=== PATIENT | female | born 1995 | race African-American/Black ===

== ENCOUNTER 2019-10-11 16:06 | Emergency (ER) | payer OTHER ==
[2019-10-11] MEDS ORDERED: KETOROLAC 15 MG/ML 1 ML VIAL IVP STA (16:24)
[2019-10-11] MEDS ORDERED: SODIUM CHLORIDE 0.9% 1,000 ML IV STA (16:24)
[2019-10-11] MEDS ORDERED: ONDANSETRON 4 MG/2 ML VIAL IVP STA (16:24)
[2019-10-11] MEDS ORDERED: ACETAMINOPHEN TAB 500 MG TAB PO STA (16:25)
--- NOTE | 2019-10-11 16:29 | ED ---
Abdominal Pain HPI - General Source: patient Mode of arrival: ambulatory Limitations: no limitations <Radha Matute - Last Filed: 10/11/19 18:53> <Ravi Melchor - Last Filed: 10/11/19 22:07> - General Chief Complaint: Abdominal Pain Stated Complaint: fever, abd pain Time Seen by Provider: 10/11/19 16:13 - History of Present Illness Initial Comments: patient is a 24-year-old female presenting to emergency Department with complaints of abdominal pain, fever, diarrhea that started yesterday. Patient states her belly pain yesterday started as just a general belly ache, in the lower abdomen and she also felt nauseous yesterday. Patient states this morning the pain has increased since more on her left side and she's been also having diarrhea today. She also had a fever at home and having chills. She continues to be nauseous, no vomiting. She does have a history cholecystectomy, no other abdominal surgeries. She states she is not at this time, secondary to control pill. She denies any chest pain or shortness of breath. She denies any vaginal complaints, dysuria, frequency. Patient didn't know that she was treated for a UTI approximately one month ago but felt like her symptoms have cleared up. No further complaints at this time. Patient's temperature is 99.2, pulse is 118, respiratory rate 20, BP is 114/75, 99% on room air. (Radha Matute) - Related Data Home Medications Medication Instructions Recorded Confirmed l-Norgest/E.estradiol-E.estrad 1 tab PO DAILY 10/11/19 10/11/19 [Loseasonique Tablet] Previous Rx's Medication Instructions Recorded Ciprofloxacin HCl [Cipro] 500 mg PO Q12HR #14 tablet 10/11/19 Allergies Allergy/AdvReac Type Severity Reaction Status Date / Time metoclopramide [From Reglan] AdvReac anxiety Verified 10/11/19 19:35 Review of Systems ROS Other: All systems not noted in ROS Statement are negative. <Radha Matute - Last Filed: 10/11/19 18:53> ROS Other: All systems not noted in ROS Statement are negative. <Ravi Melchor - Last Filed: 10/11/19 22:07> ROS Statement: Those systems with pertinent positive or pertinent negative responses have been documented in the HPI. Past Medical History Past Medical History: No Reported History History of Any Multi-Drug Resistant Organisms: None Reported Past Surgical History: Cholecystectomy Past Psychological History: No Psychological Hx Reported Smoking Status: Never smoker Past Alcohol Use History: None Reported Past Drug Use History: None Reported <Radha Matute - Last Filed: 10/11/19 18:53> General Exam Limitations: no limitations <Radha Matute - Last Filed: 10/11/19 18:53> - General Exam Comments Initial Comments: GENERAL: Patient is well-developed and well-nourished. Patient is nontoxic and in no acute distress. HEAD: Atraumatic, normocephalic. EYES: Pupils equal round and reactive to light, extraocular movements intact, sclera anicteric, conjunctiva are normal. Eyelids were unremarkable. ENT: TMs normal, nares patent, oropharynx clear without exudates. Moist mucous membranes. NECK: Normal range of motion, supple without lymphadenopathy or JVD. LUNGS: Unlabored respirations. Breath sounds clear to auscultation bilaterally and equal. No wheezes rales or rhonchi. HEART: tachycardia rate and rhythm without murmurs, rubs or gallops. ABDOMEN: tender to palpation of the entire lower abdomen, increases on the left lower quadrant. Soft, normoactive bowel sounds. No guarding, no rebound. No masses appreciated. : Deferred MUSCULOSKELETAL: Normal extremities with adequate strength and normal range of motion, no pitting or edema. No clubbing or cyanosis. NEUROLOGICAL: Patient is alert and oriented x 3. Motor and sensory are also intact. Cranial nerves II through XII grossly intact. Symmetrical smile. Normal speech, normal gait. PSYCH: Normal mood, normal affect. SKIN: Warm, Dry, normal turgor, no rashes or lesions noted. (Radha Matute) Course <Radha Matute - Last Filed: 10/11/19 18:53> <Ravi Melchor - Last Filed: 10/11/19 22:07> Vital Signs 10/11/19 16:08 Temperature 99.2 F Pulse Rate 118 H Respiratory 20 Rate Blood Pressure 114/75 O2 Sat by Pulse 99 Oximetry - Reevaluation(s) Reevaluation #1: 10/11/19 18:53 patient is a very hard stick, there has been 3 attempts in the ER, PERINATAL NURSE was called. We are waiting blood and urine. Patient was signed out to Dr. Melchor. (Radha Matute) 10/11/19 20:08 ED RN approached me stating that they have been unable to obtain blood successfully from the patient, stating that the patient is a hard stick. Patient reports to me that she has had lower abdominal pain and diarrhea since yesterday. Patient denies nausea or vomiting. Patient denies having any dysuria or urinary symptoms. Patient states that she is currently on her period. On examination, the patient has no abdominal tenderness or guarding at this time. Patient's urine test is negative. Patient's UA findings are suggestive of possible UTI. I have discussed the option to continue to attempt to draw blood from the patient, but she declines, stating that she does not want to be stuck again. Patient agrees with plan to obtain noncontrast CT abdomen and pelvis at this time. 10/11/19 22:01 Patient's abdomen remains soft and nontender on examination at this time. Patient is afebrile in the ED. Patient has not any diarrhea/loose bowel movements while in the ED. Patient is aware of her test results, and she feels comfortable going home at this time. Patient's CT is only significant for possible edema left renal hilum. I suspect that the patient's pain may be secondary to UTI and/or viral enteritis. Patient was instructed to drink plenty of fluids to stay hydrated. Patient was provided with a prescription for a course of ciprofloxacin. Patient was counseled about abdominal pain, UTI and diarrhea. Patient was instructed to follow up closely with her primary care provider. Patient feels comfortable with this plan. (Ravi Melchor) Medical Decision Making <Radha Matute - Last Filed: 10/11/19 18:53> - Radiology Data Radiology results: report reviewed (Noncontrast CT abdomen/pelvis report: Appendix appears within normal limits, there is suggestion of edema at the left renal hilum, no calculus seen, no hydronephrosis, this could relate to some nephritis or pyelonephritis) <Ravi Melchor - Last Filed: 10/11/19 22:07> - Medical Decision Making patient is a 24-year-old female here for lower left quadrant abdominal pain, fever, diarrhea 2 days. She is a history of cholecystectomy, states she is not secondary to control pill. Patient was tachycardia on arrival, 99.2 temperature but feels warmer. She is tender of the entire lower abdomen, increases on the left lower quadrant. (Radha Matute) - Lab Data Lab Results 10/11/19 10/11/19 Range/Units 19:04 19:04 Urine Color Yellow Urine Appearance Turbid H (Clear) Urine pH 6.0 (5.0-8.0) Ur Specific [place] 1.018 (1.001-1.035) Urine Protein 2+ H (Negative) Urine Glucose (UA) Negative (Negative) Urine Ketones 1+ H (Negative) Urine Blood Large H (Negative) Urine Nitrite Positive H (Negative) Urine Bilirubin Negative (Negative) Urine Urobilinogen <2.0 (<2.0) mg/dL Ur Leukocyte Esterase Large H (Negative) Urine RBC >182 H (0-5) /hpf Urine WBC >182 H (0-5) /hpf Urine WBC Clumps Many H (None) /hpf Ur Squamous Epith Cells 2 (0-4) /hpf Urine Bacteria Occasional H (None) /hpf Urine Mucus Moderate H (None) /hpf Urine HCG, Qual Not Detected (Not Detectd) Disposition <Radha Matute - Last Filed: 10/11/19 18:53> Is patient prescribed a controlled substance at d/c from ED?: No Time of Disposition: 21:59 <Ravi Melchor - Last Filed: 10/11/19 22:07> Clinical Impression: UTI (urinary tract infection), Abdominal pain, Diarrhea Disposition: HOME SELF-CARE Condition: Stable Instructions (If sedation given, give patient instructions): Urinary Tract Infection in Men (ED), Acute Diarrhea (ED), Abdominal Pain (ED) Additional Instructions: Return to the ER immediately should you develop new or worsening pain, persistent or bloody diarrhea, vomiting, a fever, feeling dizzy or faint, shortness of breath, or new or worsening symptoms. Follow up closely with your primary care provider. Prescriptions: Ciprofloxacin HCl [Cipro] 500 mg PO Q12HR #14 tablet Referrals: Jailene Tirado MD [Primary Care Provider] - 1-2 days
[2019-10-11 19:44] LABS: Appearance,Urine Turbid (Clear); Bacteria,Urine Occasional /hpf; Bilirubin,Urine Negative (Negative); Blood,Urine Large (Negative); Color,Urine Yellow; Glucose,Urine (UA) Negative (Negative); Ketones,Urine 1+ (Negative); Leukocyte Esterase,Urine Large (Negative); Mucus,Urine Moderate /hpf; Nitrite,Urine Positive (Negative); Protein,Urine 2+ (Negative); RBC,Urine >182 /hpf (0-5); Specific Gravity,Urine 1.018 (1.001-1.035); Squamous Epithelial Cell,Urine 2 /hpf (0-4); Urobilinogen,Urine <2.0 mg/dL (<2.0); WBC,Urine >182 /hpf (0-5)
--- NOTE | 2019-10-11 20:45 | CT ---
EXAMINATION TYPE: CT abdomen pelvis wo con DATE OF EXAM: 10/11/2019 COMPARISON: None HISTORY: Lower abdominal pain, fever, change in bowel habits. CT DLP: 431.2 mGycm Automated exposure control for dose reduction was used. The lung bases are clear. There is no pleural effusion. Heart size is normal. Liver spleen stomach pa ncreas appear normal. There are clips from cholecystectomy. The bile ducts are not dilated. There is no adrenal mass. Kidneys have normal size and contour. There is no hydronephrosis. Ureters a re not dilated. There is no retroperitoneal adenopathy. There is suggestion of some mild fat strandin g at the left renal hilum. Bladder distends smoothly. There is no inguinal hernia. There is no free f luid in the pelvis. Uterus is anteverted. There is no evidence of a pelvic mass. Lumbar vertebra have normal spacing and alignment. Posterior elements are intact. Bony pelvis is intact. Appendix is infe rior and lateral and appears normal. There is no mesenteric edema. There is no ascites or free air. There is no sign of a bowel obstructio n. Lumbar vertebra have normal spacing and alignment. Posterior elements are intact. The bony pelvis is intact. IMPRESSION: Appendix appears within normal limits. There is suggestion of edema at the left renal hilum. No calcu alcon seen. No hydronephrosis. This could relate to some nephritis or pyelonephritis.
[2019-10-11] MEDS ORDERED: CIPROFLOXACIN HCL 500 MG TAB PO STA (21:56)
[2019-10-11 22:14] VITALS: BP 118/68; PULSE 103; RESP 19; TEMP 99.7
== END 2019-10-11 22:13 | disposition home or self-care (01) ==
LOC: EC 16:06
DX: N39.0 Urinary tract infection, site not specified (principal); R19.7 Diarrhea, unspecified; Z88.8 Allergy status to other drugs, medicaments and biological substances; Z90.49 Acquired absence of other specified parts of digestive tract
CPT/HCPCS: 74176; 81001; 81025; 87086; 99284

== ENCOUNTER 2020-12-07 03:42 | Emergency (ER) | payer OTHER ==
[2020-12-07] MEDS ORDERED: SODIUM CHLORIDE 0.9% 1,000 ML IV STA (04:00)
[2020-12-07] MEDS ORDERED: ACETAMINOPHEN TAB 500 MG TAB PO STA (04:00)
[2020-12-07] MEDS ORDERED: KETOROLAC 15 MG/ML 1 ML VIAL IVP STA (04:00)
--- NOTE | 2020-12-07 04:07 | ED ---
Headache HPI - General Chief Complaint: Headache Stated Complaint: vomiting,poss fever Time Seen by Provider: 12/07/20 04:00 Source: RN notes reviewed, old records reviewed Mode of arrival: ambulatory Limitations: no limitations - History of Present Illness Initial Comments: This is a 25-year-old female to the ER today. She presents today for evaluation of fever not feeling well cough and is generalized body aches and pains. Patient is immunizations up-to-date. No travel history no sick contacts no significant medical history takes no medications. MD Complaint: headache, "migraine" -: hour(s) Onset Description: sudden, gradual Location: right, left Severity: moderate Severity scale (1-10): 4 Quality: aching Consistency: intermittent Improves With: nothing Worsens With: none Associated Symptoms: fever Other Symptoms: cough Treatments Prior to Arrival: none - Related Data Home Medications Medication Instructions Recorded Confirmed l-Norgest/E.estradiol-E.estrad 1 tab PO DAILY 10/11/19 10/11/19 [Loseasonique Tablet] Previous Rx's Medication Instructions Recorded Ciprofloxacin HCl [Cipro] 500 mg PO Q12HR #14 tablet 10/11/19 Allergies Allergy/AdvReac Type Severity Reaction Status Date / Time metoclopramide [From Reglan] AdvReac anxiety Verified 12/07/20 03:51 Review of Systems ROS Statement: Those systems with pertinent positive or pertinent negative responses have been documented in the HPI. ROS Other: All systems not noted in ROS Statement are negative. Past Medical History Past Medical History: No Reported History History of Any Multi-Drug Resistant Organisms: None Reported Past Surgical History: Cholecystectomy Past Psychological History: No Psychological Hx Reported Smoking Status: Never smoker Past Alcohol Use History: None Reported Past Drug Use History: None Reported General Exam Limitations: no limitations General appearance: alert, in no apparent distress Head exam: Present: atraumatic, normocephalic, normal inspection Eye exam: Present: normal appearance, PERRL, EOMI. Absent: scleral icterus, conjunctival injection, periorbital swelling ENT exam: Present: normal exam, mucous membranes moist Neck exam: Present: normal inspection. Absent: tenderness, meningismus, lymphadenopathy Respiratory exam: Present: normal lung sounds bilaterally. Absent: respiratory distress, wheezes, rales, rhonchi, stridor Cardiovascular Exam: Present: regular rate, normal rhythm, normal heart sounds. Absent: systolic murmur, diastolic murmur, rubs, gallop, clicks GI/Abdominal exam: Present: soft, normal bowel sounds. Absent: distended, tenderness, guarding, rebound, rigid Extremities exam: Present: normal inspection, full ROM, normal capillary refill. Absent: tenderness, pedal edema, joint swelling, calf tenderness Back exam: Present: normal inspection Neurological exam: Present: alert, oriented X3, CN II-XII intact Psychiatric exam: Present: normal affect, normal mood Skin exam: Present: warm, dry, intact, normal color. Absent: rash Course Vital Signs 12/07/20 12/07/20 12/07/20 03:46 05:36 06:49 Temperature 101.7 F H 99.6 F 99.3 F Pulse Rate 98 92 93 Respiratory 18 16 18 Rate Blood Pressure 114/71 107/62 97/60 O2 Sat by Pulse 97 100 98 Oximetry - Reevaluation(s) Reevaluation #1: Medical record is reviewed Patient symptoms are significantly improved Patient family informed results questions answered Medical Decision Making - Medical Decision Making 25 female to the emergency department for evaluation. Patient is positive for fever filed syndrome likely. Testing is otherwise is negative here in the ER she is no distress and can be discharged home - Lab Data Result diagrams: 12/07/20 04:17 12/07/20 04:17 Lab Results 12/07/20 12/07/20 12/07/20 Range/Units 04:17 04:17 04:17 WBC 7.4 (3.8-10.6) k/uL RBC 4.72 (3.80-5.40) m/uL Hgb 13.4 (11.4-16.0) gm/dL Hct 40.5 (34.0-46.0) % MCV 85.9 (80.0-100.0) fL MCH 28.5 (25.0-35.0) pg MCHC 33.2 (31.0-37.0) g/dL RDW 13.5 (11.5-15.5) % Plt Count 293 (150-450) k/uL MPV 8.4 Neutrophils % 51 % Lymphocytes % 39 % Monocytes % 6 % Eosinophils % 2 % Basophils % 0 % Neutrophils # 3.8 (1.3-7.7) k/uL Lymphocytes # 2.9 (1.0-4.8) k/uL Monocytes # 0.4 (0-1.0) k/uL Eosinophils # 0.1 (0-0.7) k/uL Basophils # 0.0 (0-0.2) k/uL PT 10.1 (9.0-12.0) sec INR 0.9 (<1.2) APTT 22.6 (22.0-30.0) sec Sodium 136 L (137-145) mmol/L Potassium 3.9 (3.5-5.1) mmol/L Chloride 99 (98-107) mmol/L Carbon Dioxide 26 (22-30) mmol/L Anion Gap 11 mmol/L BUN 9 (7-17) mg/dL Creatinine 0.68 (0.52-1.04) mg/dL Est GFR (CKD-EPI)AfAm >90 (>60 ml/min/1.73 sqM) Est GFR (CKD-EPI)NonAf >90 (>60 ml/min/1.73 sqM) Glucose 98 (74-99) mg/dL Plasma Lactic Acid Darryl (0.7-2.0) mmol/L Calcium 9.7 (8.4-10.2) mg/dL Magnesium 2.0 (1.6-2.3) mg/dL Total Bilirubin 0.2 (0.2-1.3) mg/dL AST 17 (14-36) U/L ALT 13 (4-34) U/L Alkaline Phosphatase 88 (38-126) U/L Lactate Dehydrogenase 407 (313-618) U/L C-Reactive Protein 1.0 H (<1.0) mg/dL Total Protein 7.9 (6.3-8.2) g/dL Albumin 4.6 (3.5-5.0) g/dL Urine Color Urine Appearance (Clear) Urine pH (5.0-8.0) Ur Specific [place] (1.001-1.035) Urine Protein (Negative) Urine Glucose (UA) (Negative) Urine Ketones (Negative) Urine Blood (Negative) Urine Nitrite (Negative) Urine Bilirubin (Negative) Urine Urobilinogen (<2.0) mg/dL Ur Leukocyte Esterase (Negative) Urine WBC (0-5) /hpf Ur Squamous Epith Cells (0-4) /hpf Urine Bacteria (None) /hpf Urine HCG, Qual (Not Detectd) Coronavirus (PCR) (Not Detectd) 12/07/20 12/07/20 12/07/20 Range/Units 04:17 04:17 04:17 WBC (3.8-10.6) k/uL RBC (3.80-5.40) m/uL Hgb (11.4-16.0) gm/dL Hct (34.0-46.0) % MCV (80.0-100.0) fL MCH (25.0-35.0) pg MCHC (31.0-37.0) g/dL RDW (11.5-15.5) % Plt Count (150-450) k/uL MPV Neutrophils % % Lymphocytes % % Monocytes % % Eosinophils % % Basophils % % Neutrophils # (1.3-7.7) k/uL Lymphocytes # (1.0-4.8) k/uL Monocytes # (0-1.0) k/uL Eosinophils # (0-0.7) k/uL Basophils # (0-0.2) k/uL PT (9.0-12.0) sec INR (<1.2) APTT (22.0-30.0) sec Sodium (137-145) mmol/L Potassium (3.5-5.1) mmol/L Chloride (98-107) mmol/L Carbon Dioxide (22-30) mmol/L Anion Gap mmol/L BUN (7-17) mg/dL Creatinine (0.52-1.04) mg/dL Est GFR (CKD-EPI)AfAm (>60 ml/min/1.73 sqM) Est GFR (CKD-EPI)NonAf (>60 ml/min/1.73 sqM) Glucose (74-99) mg/dL Plasma Lactic Acid Darryl 1.1 (0.7-2.0) mmol/L Calcium (8.4-10.2) mg/dL Magnesium (1.6-2.3) mg/dL Total Bilirubin (0.2-1.3) mg/dL AST (14-36) U/L ALT (4-34) U/L Alkaline Phosphatase (38-126) U/L Lactate Dehydrogenase (313-618) U/L C-Reactive Protein (<1.0) mg/dL Total Protein (6.3-8.2) g/dL Albumin (3.5-5.0) g/dL Urine Color Light Yellow Urine Appearance Turbid H (Clear) Urine pH 8.0 (5.0-8.0) Ur Specific [place] 1.017 (1.001-1.035) Urine Protein Negative (Negative) Urine Glucose (UA) Negative (Negative) Urine Ketones Negative (Negative) Urine Blood Large H (Negative) Urine Nitrite Negative (Negative) Urine Bilirubin Negative (Negative) Urine Urobilinogen <2.0 (<2.0) mg/dL Ur Leukocyte Esterase Small H (Negative) Urine WBC 6 H (0-5) /hpf Ur Squamous Epith Cells 2 (0-4) /hpf Urine Bacteria Rare H (None) /hpf Urine HCG, Qual Not Detected (Not Detectd) Coronavirus (PCR) (Not Detectd) 12/07/20 Range/Units 04:38 WBC (3.8-10.6) k/uL RBC (3.80-5.40) m/uL Hgb (11.4-16.0) gm/dL Hct (34.0-46.0) % MCV (80.0-100.0) fL MCH (25.0-35.0) pg MCHC (31.0-37.0) g/dL RDW (11.5-15.5) % Plt Count (150-450) k/uL MPV Neutrophils % % Lymphocytes % % Monocytes % % Eosinophils % % Basophils % % Neutrophils # (1.3-7.7) k/uL Lymphocytes # (1.0-4.8) k/uL Monocytes # (0-1.0) k/uL Eosinophils # (0-0.7) k/uL Basophils # (0-0.2) k/uL PT (9.0-12.0) sec INR (<1.2) APTT (22.0-30.0) sec Sodium (137-145) mmol/L Potassium (3.5-5.1) mmol/L Chloride (98-107) mmol/L Carbon Dioxide (22-30) mmol/L Anion Gap mmol/L BUN (7-17) mg/dL Creatinine (0.52-1.04) mg/dL Est GFR (CKD-EPI)AfAm (>60 ml/min/1.73 sqM) Est GFR (CKD-EPI)NonAf (>60 ml/min/1.73 sqM) Glucose (74-99) mg/dL Plasma Lactic Acid Darryl (0.7-2.0) mmol/L Calcium (8.4-10.2) mg/dL Magnesium (1.6-2.3) mg/dL Total Bilirubin (0.2-1.3) mg/dL AST (14-36) U/L ALT (4-34) U/L Alkaline Phosphatase (38-126) U/L Lactate Dehydrogenase (313-618) U/L C-Reactive Protein (<1.0) mg/dL Total Protein (6.3-8.2) g/dL Albumin (3.5-5.0) g/dL Urine Color Urine Appearance (Clear) Urine pH (5.0-8.0) Ur Specific [place] (1.001-1.035) Urine Protein (Negative) Urine Glucose (UA) (Negative) Urine Ketones (Negative) Urine Blood (Negative) Urine Nitrite (Negative) Urine Bilirubin (Negative) Urine Urobilinogen (<2.0) mg/dL Ur Leukocyte Esterase (Negative) Urine WBC (0-5) /hpf Ur Squamous Epith Cells (0-4) /hpf Urine Bacteria (None) /hpf Urine HCG, Qual (Not Detectd) Coronavirus (PCR) Not Detected (Not Detectd) - Radiology Data Radiology results: report reviewed (Chest x-rays negative for acute disease), i mage reviewed Disposition Clinical Impression: Fever, Viral syndrome Disposition: HOME SELF-CARE Condition: Good Instructions (If sedation given, give patient instructions): Fever in Adults (ED), Viral Syndrome (ED) Is patient prescribed a controlled substance at d/c from ED?: No Referrals: Jailene Tirado MD [Primary Care Provider] - 1-2 days
--- NOTE | 2020-12-07 04:28 | XR ---
EXAMINATION TYPE: XR chest 1V portable DATE OF EXAM: 12/07/2020 COMPARISON: NONE HISTORY: Cough and short of breath TECHNIQUE: Dual view FINDINGS: Heart and mediastinum are normal. Lungs are clear. Diaphragm is normal. Bony thorax is inta ct. IMPRESSION: Normal chest
[2020-12-07 04:59] LABS: Basophils % (A) 0 %; Eosinophils # (A) 0.1 k/uL (0-0.7); Eosinophils % (A) 2 %; HCT 40.5 % (34.0-46.0); HGB 13.4 gm/dL (11.4-16.0); Lymphocytes # (A) 2.9 k/uL (1.0-4.8); Lymphocytes % (A) 39 %; MCH 28.5 pg (25.0-35.0); MCHC 33.2 g/dL (31.0-37.0); MCV 85.9 fL (80.0-100.0); Mean Platelet Volume 8.4; Monocytes # (A) 0.4 k/uL (0-1.0); Monocytes % (A) 6 %; Neutrophils # (A) 3.8 k/uL (1.3-7.7); Neutrophils % (A) 51 %; Platelet Count 293 k/uL (150-450); RBC 4.72 m/uL (3.80-5.40); RDW 13.5 % (11.5-15.5); WBC 7.4 k/uL (3.8-10.6)
[2020-12-07 05:04] LABS: Appearance,Urine Turbid (Clear); Bacteria,Urine Rare /hpf; Bilirubin,Urine Negative (Negative); Blood,Urine Large (Negative); Color,Urine Light Yellow; Glucose,Urine (UA) Negative (Negative); Ketones,Urine Negative (Negative); Leukocyte Esterase,Urine Small (Negative); Nitrite,Urine Negative (Negative); Protein,Urine Negative (Negative); Specific Gravity,Urine 1.017 (1.001-1.035); Squamous Epithelial Cell,Urine 2 /hpf (0-4); Urobilinogen,Urine <2.0 mg/dL (<2.0); WBC,Urine 6 /hpf (0-5)
[2020-12-07 05:12] LABS: ALT 13 U/L (4-34); AST 17 U/L (14-36); African American GFR (CKD) >90 (>60 ml/min/1.73 sqM); Albumin 4.6 g/dL (3.5-5.0); Alkaline Phosphatase 88 U/L (38-126); Anion Gap 11 mmol/L; Blood Urea Nitrogen 9 mg/dL (7-17); Calcium 9.7 mg/dL (8.4-10.2); Carbon Dioxide 26 mmol/L (22-30); Chloride 99 mmol/L (98-107); Glucose 98 mg/dL (74-99); LDH 407 U/L (313-618); Non-African American GFR(CKD) >90 (>60 ml/min/1.73 sqM); Potassium 3.9 mmol/L (3.5-5.1); Sodium 136 mmol/L (137-145); Total Bilirubin 0.2 mg/dL (0.2-1.3); Total Protein 7.9 g/dL (6.3-8.2)
[2020-12-07 05:17] LABS: INR 0.9 (<1.2); Partial Thromboplastin Time 22.6 sec (22.0-30.0); Prothrombin Time 10.1 sec (9.0-12.0)
[2020-12-07 06:51] VITALS: BP 97/60; PULSE 93; RESP 18; TEMP 99.3
== END 2020-12-07 06:59 | disposition home or self-care (01) ==
LOC: EC 03:42
DX: B34.9 Viral infection, unspecified (principal); Z90.49 Acquired absence of other specified parts of digestive tract; Z20.822 Contact with and (suspected) exposure to COVID-19
CPT/HCPCS: 99284 ×2; 96374 ×2; 96361 ×3; 36415; 93005; 80053; 83605; 83615; 83735; 85025; 85610; 85730; 86140; 81001; 81025; 87040; 87635; 71045; J1885

== ENCOUNTER → 2020-12-27 | Outpatient (CLI) | payer OTHER ==
--- NOTE | 2020-12-27 13:52 | XR ---
EXAMINATION TYPE: XR thoracic spine complete DATE OF EXAM: 12/27/2020 CLINICAL HISTORY: Mid back pain for 2 weeks. TECHNIQUE: Frontal, lateral, and swimmer's view of thoracic spine are obtained. COMPARISON: None. FINDINGS: Thoracic spine show satisfactory alignment without evidence of acute fracture or dislocatio n. Vertebral body heights and disc space heights are preserved. Visualized ribs are intact bilateral ly. Cholecystectomy clips are noted. IMPRESSION: Unremarkable study.
== END | disposition home or self-care (01) ==
LOC: RADXRMAIN 12:44
PROVIDERS: ATTEND Nurse Practitioner Gerontology
DX: M54.6 Pain in thoracic spine (principal)
CPT/HCPCS: 72072